=== PATIENT | female | born 1995 | race Caucasian/White ===

== ENCOUNTER 2018-07-30 04:28 | Emergency (ER) | payer OTHER ==
[~2018-07-30] VITALS: Ht 167.6 cm; Wt 72.6 kg
[2018-07-30 04:29] VITALS: BP 156/78
--- NOTE | 2018-07-30 04:29 | NUR ---
PT TAKEN TO BED 7
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
--- NOTE | 2018-07-30 04:34 | NUR ---
Dr. Madsen evaluating patient at bedside.
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
[2018-07-30] MEDS ORDERED: MORPHINE SULFATE 4 MG/ML SYR IVP ONE ×2 (04:40→06:35)
[2018-07-30] MEDS ORDERED: ONDANSETRON 4 MG/2 ML VIAL IVP ONE (04:40)
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
[2018-07-30] MEDS ORDERED: LORazepam 2 MG/ML VIAL IVP ONE (05:00)
[2018-07-30 05:15] LABS: ALBUMIN 4.1 g/dL (3.4-5.0); ANION GAP 17.5 (8-16); CARBON DIOXIDE 19.9 mmol/L (21-32); CREATININE 0.7 mg/dL (0.6-1.3); POTASSIUM 3.4 mmol/L (3.5-5.1); TOTAL BILIRUBIN 0.2 mg/dL (0.0-1.0)
--- NOTE | 2018-07-30 05:17 | NUR ---
PT WENT TO CT BY MINAL
[2018-07-30 05:37] LABS: BASOPHILS % (AUTO) 0.6 % (0.0-2.0); EOSINOPHILS % (AUTO) 0.5 % (0.0-4.0); HEMATOCRIT 39.6 % (36-48); HEMOGLOBIN 13.1 g/dL (12.0-16.0); LYMPHOCYTES # (AUTO) 2.1 K/uL (2.5-16.5); LYMPHOCYTES % (AUTO) 30.5 % (20.5-51.1); MEAN CORPUSCULAR HEMOGLOBIN 26 pg (27-31); MEAN CORPUSCULAR HGB CONC 33 g/dL (33-37); MEAN CORPUSCULAR VOLUME 78.2 fL (80-94); MONOCYTES # (AUTO) 0.3 K/uL (0.8-1.0); NEUTROPHILS # (AUTO) 4.4 K/uL (1.8-7.7); NEUTROPHILS % (AUTO) 64.4 % (42.2-75.2); PLATELET COUNT (AUTO) 364 K/uL (140-450); RED BLOOD CELL COUNT(AUTO) 5.06 MIL/uL (4.20-5.40); RED CELL DISTRIBUTION WIDTH 13.2 % (11.6-13.7); WHITE BLOOD COUNT (AUTO) 6.8 K/uL (4.8-10.8)
--- NOTE | 2018-07-30 05:48 | NUR ---
PT RETURN FROM CT
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
--- NOTE | 2018-07-30 06:29 | NUR ---
X-Ray at bedside.
[2018-07-30 07:02] VITALS: BP 109/75
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
== END 2018-07-30 07:02 | disposition home or self-care (01) ==
LOC: MED 04:28
DX: R68.84 Jaw pain (principal); Y04.2XXA Assault by strike against or bumped into by another person, initial encounter; Y93.89 Activity, other specified; Y92.89 Other specified places as the place of occurrence of the external cause; Y99.8 Other external cause status
CPT/HCPCS: 36415; 70450; 70486; 71045; 72125; 73130; 74176; 80053; 81002; 81025; 84702; 85025; 96374; 96375; 96376; 99284; J2060; J2270; J2405; Q0092